=== PATIENT | male | born 1965 | race Caucasian/White ===

== ENCOUNTER → 2017-03-31 | Outpatient (CLI) | payer OTHER ==
[~2017-03-31] MED LIST: ASPIRIN EC81 M1 PO; HUMALOG100 UNIT/1; MULTI VITAMIN1 EACH PO; PRINIVIL5 MG PO; SIMVASTATIN20 MG PO; SYNTHROID112 MCG PO; WELLBUTRIN SR200 MG PO
--- NOTE | 2017-04-21 10:53 | SLEEP ---
[address] [address] SLEEP STUDY REPORT Name: JUNAID CHOU Room: [facility]#: [id number] Admission: 03/31/17 Attend Phys: Lionel Todd Discharge: Date of : 61 Report #: [id number] THIS REPORT FOR: //name// CC: Va Alvarez This study has been reviewed in its entirety by a board certified sleep specialist DATE OF SERVICE: 04/01/2017 INDICATION FOR SLEEP STUDY: Excessive daytime sleepiness thickening. INTERPRETATION: Total duration of the study is 421 minutes. During this time duration, we did record multiple sleep related respiratory events. These include 57 obstructive apneas in addition to 61 hypopneas with an overall apnea-hypopnea index of 17. Body position data indicates the patient was lying on the right side throughout the sleep study. There are also multiple desaturations recorded. Overall, the patient spent 34.3 minutes below an O2 saturation of 88%, out of which 2 minutes were spent below an O2 saturation of 85%. Mean heart rate was 74. IMPRESSION: Obstructive sleep apnea with nocturnal hypoxemia as mentioned above. RECOMMENDATIONS: Options include either the use of a CPAP auto titrated device or a repeat sleep study for positive airway pressure titration. Clinical correlation is advised. <ELECTRONICALLY SIGNED> By: Balbir Calles MD 04/21/17 1053 [id number] [id number] [address] [place]
== END ==
LOC: M.SLEEPLAB 09:00
DX: G47.33 Obstructive sleep apnea (adult) (pediatric) (principal)

== ENCOUNTER → 2017-05-10 | Outpatient (CLI) | payer OTHER ==
--- NOTE | 2017-05-25 12:43 | SLEEP ---
[address] [address] SLEEP STUDY REPORT Name: JUNAID CHOU Room: [facility]#: [id number] Admission: 05/10/17 Attend Phys: Lionel Todd Discharge: Date of : 61 Report #: [id number] THIS REPORT FOR: //name// CC: Va Steele This study has been reviewed in its entirety by a board certified sleep specialist DATE OF SERVICE: 05/10/2017 REFERRING PHYSICIAN: Va Steele DO. TYPE OF STUDY: CPAP titration. INDICATION: Known obstructive sleep apnea on a home sleep apnea test that was done on 04/01/2017 that demonstrated apnea-hypopnea index of 17 in the setting of excessive daytime sleepiness and the lowest O2 saturation recorded was 88%. METHODS: The following parameters were monitored: Frontal, central and occipital EEG; electro-oculogram; submentalis EMG; nasal and oral airflow; anterior tibialis EMG; body position and electrocardiogram. Additionally, thoracic and abdominal movements were recorded by inductance plethysmography. Oxygen saturation was monitored using pulse oximeter. The tracing was scored using 30-second epochs. Hypopneas were scored per the [employer] definition using the 4% desaturation criteria. SLEEP SUMMARY: Total recording time 449.8 minutes. Total sleep time was 354 minutes. Sleep efficiency was 78.7%. Latency to sleep was 24.1 minutes. Latency to REM was 277.1 minutes. SLEEP STAGING: Stage N1 at 10.7% of total sleep time, stage N2 at 82.1% of total sleep time, stage N3 none recorded and stage REM 7.2% of total sleep time. This was a CPAP titration study where the patient was titrated at a pressure of 5 and 7 cm of water. At the level of 7 cm of water, the patient slept for 275 minutes with 25 minutes of lateral REM recorded at this level. At this level of CPAP pressure of 7 cm of water, apnea-hypopnea index improved to 0.7 per hour. The lowest O2 saturation recorded was 91%. The average heart rate was 59.8, with no arrhythmias reported and the limb movement index was 14.4 per hour. RECOMMENDATIONS: 1. A trial of CPAP therapy with a pressure of 7 cm of water. 2. Avoid driving or operating machinery [place] [address] SLEEP STUDY REPORT Name: JUNAID CHOU [id number] Admission: 05/10/17 Attend Phys: Lionel Todd Discharge: Date of : 61 Report #: [id number] 3. Avoid alcohol, sedatives and hypnotics close to bedtime. 4. Recommend maintaining ideal body weight. <ELECTRONICALLY SIGNED> By: Eden Savage MD 05/25/17 1243 1213 [id number] nella [place]
== END ==
LOC: M.SLEEPLAB 19:59
DX: G47.33 Obstructive sleep apnea (adult) (pediatric) (principal)